=== PATIENT | female | born 1990 | race Caucasian/White ===

== ENCOUNTER 2017-01-03 11:35 | Inpatient (IN) | payer OTHER ==
[2017-01-03 12:01] VITALS: BMI 25.8
--- NOTE | 2017-01-03 12:34 | HP ---
CIWA Score - CIWA Score Nausea/Vomitin Muscle Tremors: 3 Anxiety: 3 Agitation: 3 Paroxysmal Sweats: 2 Orientation: 0-Oriented Tacttile Disturbances: 2-Mild Itch/Numbness/Burn Auditory Disturbances: 2-Mild Harshness/Frighten Visual Disturbances: 1-Very Mild Sensitivity Headache: 2-Mild CIWA-Ar Total Score: 21 Admission ROS BHS - HPI Chief Complaint: i am here for detox from xanax and cocaine Allergies/Adverse Reactions: Allergies Allergy/AdvReac Type Severity Reaction Status Date / Time No Known Allergies Allergy Verified 01/03/17 12:13 History of Present Illness: this 26 years old female with xanax and cociane dependence,seeking detox,last treatment [facility] 05/05 mmtp 60 mgs/day,last medicated today abscess of right elbow s/p incision and drainage today no significant period of sobriety - Ebola screening Have you traveled outside of the country in the last 21 days: No Have you had contact with anyone from an Ebola affected area: No Have you been sick,other than usual withdrawal symptoms: No Do you have a fever: No - Review of Systems Constitutional: Loss of Appetite, Night Sweats, Changes in sleep EENT: reports: Nose Congestion Respiratory: reports: No Symptoms reported Cardiac: reports: No Symptoms Reported GI: reports: No Symptoms Reported : reports: No Symptoms Reported Musculoskeletal: reports: Back Pain, Joint Pain, Muscle Pain Integumentary: reports: Dryness Neuro: reports: Headache, Tremors Endocrine: reports: No Symptoms Reported Hematology: reports: No Symptoms Reported Psychiatric: reports: No Sypmtoms Reported, Judgement Intact, Mood/Affect Appropiate, Orientated x3 Patient History - Patient Medical History Hx Anemia: No Hx Asthma: No Hx Chronic Obstructive Pulmonary Disease (COPD): No Hx Cancer: No Hx Cardiac Disorders: No Hx Congestive Heart Failure: No Hx Hypertension: No Hx Hypercholesterolemia: No Hx Pacemaker: No HX Cerebrovascular Accident: No Hx Seizures: No Hx Dementia: No Hx Diabetes: No Hx Gastrointestinal Disorders: No Hx Liver Disease: No Hx Genitourinary Disorders: No Hx Sexually Transmitted Disorders: No Hx Renal Disease (ESRD): No Hx Thyroid Disease: No Hx Human Immunodeficiency Virus (HIV): No (last 12/28/16 negative) Hx Hepatitis C: No Hx Depression: No Hx Suicide Attempt: No Hx Bipolar Disorder: No Hx Schizophrenia: No Other Medical History: no suicidal,no homicidal - Patient Surgical History Past Surgical History: Yes Other Surgical History: incision and drainage of abscess of right elbow - PPD History Previous Implant?: Yes Documented Results: Negative w/o proof Implanted On Prior R Admission?: Yes PPD to be Administered?: Yes - Reproductive History Patient is a Female of Child Bearing Age (11 -55 yrs old): Yes Last Menstrual Period: 12/27/16 Patient : No - Smoking Cessation Smoking history: Never smoked - Substance & Tx. History Hx Alcohol Use: No Hx Substance Use: Yes Substance Use Type: Cocaine, Tranquilizers - Substances Abused Alprazolam (Xanax) Route: Oral Frequency: Daily Amount used: 4MG Age of first use: 25 Date of Last Use: 01/02/17 Cocaine Route: Injection Frequency: Daily Amount used: 2 BAGS Age of first use: 25 Date of Last Use: 01/02/17 Family Disease History - Family Disease History Family Disease History: Other: Mother (dsa) Admission Physical Exam S - Vital Signs Vital Signs: Vital Signs - 24 hr 01/03/17 11:58 Temperature 96.5 F L Pulse Rate 64 Respiratory 20 Rate Blood Pressure 128/77 - Physical General Appearance: Yes: Moderate Distress, Tremorous, Irritable, Sweating, Anxious HEENTM: Yes: Normal ENT Inspection, [place], Pharynx Normal Respiratory: Yes: Lungs Clear, Normal Breath Sounds, No Respiratory Distress Neck: Yes: Within Normal Limits, Supple, Trachea in good position Breast: Yes: Breast Exam Deferred Cardiology: Yes: Within Normal Limits, Regular Rhythm, Regular Rate, S1, S2 Abdominal: Yes: Within Normal Limits, Normal Bowel Sounds, Non Tender, Soft Genitourinary: Yes: Within Normal Limits Back: Yes: Normal Inspection, Muscle Spasm Musculoskeletal: Yes: Back pain, Muscle Pain Extremities: Yes: Tremors, Other (s/p incision and drainage of abscess of right elbow) 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 NML intact, Fully Oriented, Alert, Motor Strength 5/5 Integumentary: Yes: Dry (s/p drainage of abscess of right elbow with dressiong) Lymphatic: Yes: Within Normal Limits - Diagnostic (1) Uncomplicated sedative, 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 (2) Cocaine dependence Current Visit: Yes Status: Chronic Qualifiers: Substance use status: uncomplicated Qualified Code(s): F14.20 - Cocaine dependence, uncomplicated; F14.20 - Cocaine dependence, uncomplicated; F14.20 - Cocaine dependence, uncomplicated (3) Methadone maintenance therapy patient Current Visit: Yes Status: Chronic (4) Abscess Current Visit: Yes Status: Acute Cleared for Admission [facility] - Detox or Rehab [facility] Level of Care: Medically Managed Detox Regimen/Protocol: Valium S Breath Alcohol Content Breath Alcohol Content: 0 Urine Pregancy Test - Result Urine Test Results: Negative- NO Line Present Urine Drug Screen - Results Drug Screen Negative: No Urine Drug Screen Results: CECELIA-Cocaine, OPI-Opiates, BZO-Benzodiazepines, MTD- Methadone
[2017-01-03] MEDS ORDERED: MAG HYDROX/AL HYDROX/SIMETH 30 ML UNIT-DOSE CUP PO PRN (12:52)
[2017-01-03] MEDS ORDERED: P-EPHED 60MG/TRIPROLIDI 2.5MG TABLET PO PRN (12:52)
[2017-01-03] MEDS ORDERED: diazePAM 5 MG TABLET PO PRN (12:52)
[2017-01-03] MEDS ORDERED: MENTHOL/PHENOL 1 EACH UD MM PRN (12:52)
[2017-01-03] MEDS ORDERED: IBUPROFEN 400 MG TABLET (FP) PO PRN (12:52)
[2017-01-03] MEDS ORDERED: guaiFENesin/D-METHORPHAN HB 10 ML UNIT-DOSE CUPS PO PRN (12:52)
[2017-01-03] MEDS ORDERED: MAGNESIUM CITRATE 300 ML BOTTLE PO PRN (12:52)
[2017-01-03] MEDS ORDERED: LOPERAMIDE HCL 2 MG CAPSULE PO PRN (12:52)
[2017-01-03] MEDS ORDERED: diazePAM 5 MG TABLET PO ONE (13:45)
[2017-01-03] MEDS: diazePAM 5 MG TABLET PO SCH ×2 (14:13→22:31)
[2017-01-03 16:52] LABS: URINE APPEARANCE CLOUDY; URINE BILIRUBIN NEGATIVE (NEGATIVE); URINE BLOOD NEGATIVE (NEGATIVE); URINE COLOR YELLOW; URINE GLUCOSE (UA) NEGATIVE (NEGATIVE); URINE KETONE NEGATIVE (NEGATIVE); URINE NITRITE NEGATIVE (NEGATIVE); URINE UROBILINOGEN NEGATIVE mg/dL (0.2-1.0)
[2017-01-03 17:07] LABS: URINE PROTEIN 1+ (NEGATIVE)
[2017-01-03 17:44] LABS: URINE HYALINE CAST 5 /lpf; URINE MUCUS MANY; URINE RBC 4 /hpf (0-3); URINE WBC 13 /hpf (3-5)
[2017-01-03] MEDS ORDERED: CLINDAMYCIN HCL 300 MG CAPSULE PO SCH (18:00)
[2017-01-03] MEDS: CLINDAMYCIN HCL 150 MG CAPSULE (FP) PO SCH (18:05)
[2017-01-03 19:58] LABS: URINE LEUK ESTERASE Negative (NEGATIVE)
[2017-01-03] MEDS: NAPROXEN 500 MG TABLET (FP) PO SCH (22:31)
[2017-01-03] MEDS: THIAMINE HCL 100 MG TABLET (FP) PO SCH (22:31)
[2017-01-04] MEDS: CLINDAMYCIN HCL 150 MG CAPSULE (FP) PO SCH ×5 (06:12→23:08)
[2017-01-04] MEDS: diazePAM 5 MG TABLET PO SCH ×3 (06:12→22:18)
[2017-01-04] MEDS ORDERED: METHADONE HCL 10 MG TABLET PO ONE (09:51)
[2017-01-04] MEDS ORDERED: METHADONE 40 MG, METHADONE 20 MG PO ONE (10:00)
[2017-01-04] MEDS ORDERED: METHADONE HCL 40 MG DISPERSABLE TABLET ONE (10:06)
[2017-01-04] MEDS ORDERED: METHADONE HCL 10 MG TABLET ONE (10:07)
[2017-01-04 10:52] LABS: ALBUMIN 3.2 g/dl (3.4-5.0); ANION GAP 7 (8-16); CALCIUM 8.5 mg/dL (8.5-10.1); CO2 27 mmol/L (21-32); CREATININE 0.8 mg/dL (0.55-1.02); GLUCOSE,RANDOM 89 mg/dL (74-106); SGOT/AST 10 U/L (15-37); SGPT/ALT 14 U/L (12-78)
[2017-01-04 10:53] LABS: MCH 26.5 pg (25.7-33.7); MCHC 33.4 g/dl (32.0-36.0); MEAN CELL VOLUME 79.6 fl (80-96); MEAN PLT VOLUME 7.9 fl (7.5-11.1); PLATELET COUNT 304 K/MM3 (134-434); RDW 14.1 % (11.6-15.6); WHITE BLOOD COUNT 4.6 K/mm3 (4.0-10.0)
[2017-01-04 10:54] LABS: ALK PHOS 71 U/L (45-117); BILIRUBIN,TOTAL 0.2 mg/dL (0.2-1.0); TOT PROT 7.4 g/dl (6.4-8.2)
[2017-01-04] MEDS: PRENATAL VITAMINS W/ FOLIC ACID TABLET (FP) PO SCH (11:06)
[2017-01-04] MEDS: NAPROXEN 500 MG TABLET (FP) PO SCH ×2 (11:06→22:18)
[2017-01-04] MEDS: LIDOCAINE 5% TOPICAL PATCH TP SCH (11:07)
--- NOTE | 2017-01-04 12:04 | PN ---
S CIWA - CIWA Score Nausea/Vomitin-No Nausea/No Vomiting Muscle Tremors: 4-Moderate,w/Arms Extend Anxiety: 3 Agitation: 4-Moderately Restless Paroxysmal Sweats: 3 Orientation: 0-Oriented Tacttile Disturbances: 0-None Auditory Disturbances: 0-None Visual Disturbances: 0-None Headache: 0-None Present CIWA-Ar Total Score: 14 BHS Progress Note (SOAP) Subjective: interrupted sleep agitation sweats pain at incision site Objective: 01/04/17 12:02 Vital Signs Temperature 96.9 F L 01/04/17 10:07 Pulse Rate 78 01/04/17 10:07 Respiratory Rate 18 01/04/17 10:07 Blood Pressure 128/62 01/04/17 10:07 O2 Sat by Pulse Oximetry (%) Laboratory Tests 01/03/17 01/04/17 01/04/17 15:40 07:00 07:00 WBC 4.6 RBC 4.07 Hgb 10.8 Hct 32.4 MCV 79.6 L MCH 26.5 MCHC 33.4 RDW 14.1 Plt Count 304 MPV 7.9 Sodium 139 Potassium 4.1 Chloride 105 Carbon Dioxide 27 Anion Gap 7 L BUN 10 Creatinine 0.8 Creat Clearance w eGFR > 60 Random Glucose 89 Calcium 8.5 Total Bilirubin 0.2 AST 10 L ALT 14 Alkaline Phosphatase 71 Total Protein 7.4 Albumin 3.2 L Urine Color Yellow Urine Appearance Cloudy Urine pH 7.0 Ur Specific [place] 1.025 Urine Protein 1+ H Urine Glucose (UA) Negative Urine Ketones Negative Urine Blood Negative Urine Nitrite Negative Urine Bilirubin Negative Urine Urobilinogen Negative Ur Leukocyte Esterase Negative Urine RBC 4 Urine WBC 13 Ur Epithelial Cells Many Hyaline Casts 5 Urine Mucus Many RPR Titer 01/04/17 07:00 WBC RBC Hgb Hct MCV MCH MCHC RDW Plt Count MPV Sodium Potassium Chloride Carbon Dioxide Anion Gap BUN Creatinine Creat Clearance w eGFR Random Glucose Calcium Total Bilirubin AST ALT Alkaline Phosphatase Total Protein Albumin Urine Color Urine Appearance Urine pH Ur Specific [place] Urine Protein Urine Glucose (UA) Urine Ketones Urine Blood Urine Nitrite Urine Bilirubin Urine Urobilinogen Ur Leukocyte Esterase Urine RBC Urine WBC Ur Epithelial Cells Hyaline Casts Urine Mucus RPR Titer Nonreactive aaox3 ambulating no acute distress Assessment: 01/04/17 12:02 withdrawal sx Plan: continue detox increase fluids incision site packing removed, site is clean no s/s of infection, bacitracin ordered and gauze ordered for dressing change.
[2017-01-04] MEDS: ACETAMINOPHEN 325 MG TABLET (FP) PO PRN (12:50)
[2017-01-04] MEDS: BACITRACIN 0.9 GM PACKET TP SCH (12:52)
--- NOTE | 2017-01-04 13:08 | EKG ---
Test Reason : Blood Pressure : / mmHG Vent. Rate : 058 BPM Atrial Rate : 058 BPM P-R Int : 138 ms QRS Dur : 080 ms QT Int : 472 ms P-R-T Axes : 007 025 -02 degrees QTc Int : 463 ms SINUS BRADYCARDIA T WAVE ABNORMALITY, CONSIDER ANTERIOR ISCHEMIA ABNORMAL ECG NO PREVIOUS ECGS AVAILABLE Confirmed by RICHAR CANCHOLA MD ([id number]) on 01/04/2017 1:08:15 PM Referred By: Confirmed By:RICHAR CANCHOLA MD
[2017-01-04] MEDS: diphenhydrAMINE HCL 50 MG CAPSULE PO PRN (22:17)
[2017-01-04] MEDS: LIDOCAINE PATCH REMOVAL MC SCH (22:18)
[2017-01-04] MEDS: THIAMINE HCL 100 MG TABLET (FP) PO SCH (22:19)
[2017-01-05] MEDS ORDERED: METHADONE HCL 10 MG TABLET ONE (05:08)
[2017-01-05] MEDS ORDERED: METHADONE HCL 40 MG DISPERSABLE TABLET ONE (05:08)
[2017-01-05] MEDS ORDERED: METHADONE HCL 40 MG DISPERSABLE TABLET PO SCH (06:00)
[2017-01-05] MEDS: CLINDAMYCIN HCL 150 MG CAPSULE (FP) PO SCH ×4 (06:19→23:03)
[2017-01-05] MEDS: METHADONE 40 MG, METHADONE 20 MG PO SCH (06:20)
[2017-01-05] MEDS: PRENATAL VITAMINS W/ FOLIC ACID TABLET (FP) PO SCH (10:37)
[2017-01-05] MEDS: BACITRACIN 0.9 GM PACKET TP SCH (10:37)
[2017-01-05] MEDS: diazePAM 5 MG TABLET PO SCH ×2 (10:37→23:03)
[2017-01-05] MEDS: NAPROXEN 500 MG TABLET (FP) PO SCH ×2 (10:38→23:03)
[2017-01-05] MEDS: LIDOCAINE 5% TOPICAL PATCH TP SCH (10:38)
[2017-01-05] MEDS: ACETAMINOPHEN 325 MG TABLET (FP) PO PRN (10:40)
[2017-01-05] MEDS: MAGNESIUM HYDROX 2400MG/30ML ORAL SUSPENSION 30 ML CUP PO PRN (10:42)
--- NOTE | 2017-01-05 12:45 | PN ---
S CIWA - CIWA Score Nausea/Vomitin-Mild Nausea/No Vomiting Muscle Tremors: 4-Moderate,w/Arms Extend Anxiety: 3 Agitation: 4-Moderately Restless Paroxysmal Sweats: 3 Orientation: 0-Oriented Tacttile Disturbances: 0-None Auditory Disturbances: 0-None Visual Disturbances: 0-None Headache: 1-Very Mild CIWA-Ar Total Score: 16 BHS Progress Note (SOAP) Subjective: headache agitation anxiety cold sweats irritable nausea Objective: 01/05/17 12:44 Vital Signs Temperature 97.7 F 01/05/17 10:00 Pulse Rate 71 01/05/17 10:00 Respiratory Rate 18 01/05/17 10:00 Blood Pressure 120/60 01/05/17 10:00 O2 Sat by Pulse Oximetry (%) Laboratory Tests 01/03/17 01/04/17 01/04/17 15:40 07:00 07:00 WBC 4.6 RBC 4.07 Hgb 10.8 Hct 32.4 MCV 79.6 L MCH 26.5 MCHC 33.4 RDW 14.1 Plt Count 304 MPV 7.9 Sodium 139 Potassium 4.1 Chloride 105 Carbon Dioxide 27 Anion Gap 7 L BUN 10 Creatinine 0.8 Creat Clearance w eGFR > 60 Random Glucose 89 Calcium 8.5 Total Bilirubin 0.2 AST 10 L ALT 14 Alkaline Phosphatase 71 Total Protein 7.4 Albumin 3.2 L Urine Color Yellow Urine Appearance Cloudy Urine pH 7.0 Ur Specific [place] 1.025 Urine Protein 1+ H Urine Glucose (UA) Negative Urine Ketones Negative Urine Blood Negative Urine Nitrite Negative Urine Bilirubin Negative Urine Urobilinogen Negative Ur Leukocyte Esterase Negative Urine RBC 4 Urine WBC 13 Ur Epithelial Cells Many Hyaline Casts 5 Urine Mucus Many RPR Titer 01/04/17 07:00 WBC RBC Hgb Hct MCV MCH MCHC RDW Plt Count MPV Sodium Potassium Chloride Carbon Dioxide Anion Gap BUN Creatinine Creat Clearance w eGFR Random Glucose Calcium Total Bilirubin AST ALT Alkaline Phosphatase Total Protein Albumin Urine Color Urine Appearance Urine pH Ur Specific [place] Urine Protein Urine Glucose (UA) Urine Ketones Urine Blood Urine Nitrite Urine Bilirubin Urine Urobilinogen Ur Leukocyte Esterase Urine RBC Urine WBC Ur Epithelial Cells Hyaline Casts Urine Mucus RPR Titer Nonreactive aaox3 ambulating no acute distress Assessment: 01/05/17 12:44 withdrawal sx wound to arm is clean no s/s infection Plan: continue detox increase fluids zofran prn motrin 600mg prn
[2017-01-05] MEDS: LIDOCAINE PATCH REMOVAL MC SCH (23:02)
[2017-01-05] MEDS: THIAMINE HCL 100 MG TABLET (FP) PO SCH (23:03)
[2017-01-05] MEDS: diphenhydrAMINE HCL 50 MG CAPSULE PO PRN (23:04)
[2017-01-06] MEDS ORDERED: METHADONE HCL 10 MG TABLET ONE (04:19)
[2017-01-06] MEDS ORDERED: METHADONE HCL 40 MG DISPERSABLE TABLET ONE (04:19)
[2017-01-06] MEDS: METHADONE 40 MG, METHADONE 20 MG PO SCH (06:19)
[2017-01-06] MEDS: CLINDAMYCIN HCL 150 MG CAPSULE (FP) PO SCH ×4 (06:19→23:41)
[2017-01-06] MEDS: ACETAMINOPHEN 325 MG TABLET (FP) PO PRN (06:20)
[2017-01-06] MEDS: BACITRACIN 0.9 GM PACKET TP SCH (11:14)
[2017-01-06] MEDS: NAPROXEN 500 MG TABLET (FP) PO SCH ×2 (11:14→22:50)
[2017-01-06] MEDS: diazePAM 5 MG TABLET PO SCH ×2 (11:14→22:50)
[2017-01-06] MEDS: ONDANSETRON *ODT* 4 MG TABLET SL PRN (11:16)
[2017-01-06] MEDS: MAGNESIUM HYDROX 2400MG/30ML ORAL SUSPENSION 30 ML CUP PO PRN (11:16)
[2017-01-06] MEDS: PRENATAL VITAMINS W/ FOLIC ACID TABLET (FP) PO SCH (11:17)
[2017-01-06] MEDS: LIDOCAINE 5% TOPICAL PATCH TP SCH (11:17)
--- NOTE | 2017-01-06 12:57 | PN ---
BHS Progress Note (SOAP) Subjective: poor sleep, anxious, shaky Objective: 01/06/17 12:57 Laboratory Tests 01/03/17 01/04/17 01/04/17 15:40 07:00 07:00 WBC 4.6 RBC 4.07 Hgb 10.8 Hct 32.4 MCV 79.6 L MCH 26.5 MCHC 33.4 RDW 14.1 Plt Count 304 MPV 7.9 Sodium 139 Potassium 4.1 Chloride 105 Carbon Dioxide 27 Anion Gap 7 L BUN 10 Creatinine 0.8 Creat Clearance w eGFR > 60 Random Glucose 89 Calcium 8.5 Total Bilirubin 0.2 AST 10 L ALT 14 Alkaline Phosphatase 71 Total Protein 7.4 Albumin 3.2 L Urine Color Yellow Urine Appearance Cloudy Urine pH 7.0 Ur Specific [place] 1.025 Urine Protein 1+ H Urine Glucose (UA) Negative Urine Ketones Negative Urine Blood Negative Urine Nitrite Negative Urine Bilirubin Negative Urine Urobilinogen Negative Ur Leukocyte Esterase Negative Urine RBC 4 Urine WBC 13 Ur Epithelial Cells Many Hyaline Casts 5 Urine Mucus Many RPR Titer 01/04/17 07:00 WBC RBC Hgb Hct MCV MCH MCHC RDW Plt Count MPV Sodium Potassium Chloride Carbon Dioxide Anion Gap BUN Creatinine Creat Clearance w eGFR Random Glucose Calcium Total Bilirubin AST ALT Alkaline Phosphatase Total Protein Albumin Urine Color Urine Appearance Urine pH Ur Specific [place] Urine Protein Urine Glucose (UA) Urine Ketones Urine Blood Urine Nitrite Urine Bilirubin Urine Urobilinogen Ur Leukocyte Esterase Urine RBC Urine WBC Ur Epithelial Cells Hyaline Casts Urine Mucus RPR Titer Nonreactive Vital Signs - 24 hr 01/05/17 01/05/17 01/05/17 15:09 18:31 23:55 Temperature 97.6 F 98.1 F 97.1 F L Pulse Rate 97 H 57 L 58 L Respiratory 18 16 16 Rate Blood Pressure 118/71 93/59 101/70 01/06/17 01/06/17 01/06/17 00:30 03:30 06:53 Temperature 98.1 F Pulse Rate 68 Respiratory 18 18 18 Rate Blood Pressure 104/67 01/06/17 11:29 Temperature 97.1 F L Pulse Rate 58 L Respiratory 16 Rate Blood Pressure 108/66 Assessment: 01/06/17 12:57 withdrawal Plan: cont detox protocol
[2017-01-06] MEDS: hydrOXYzine PAMOATE 50 MG CAPSULE (FP) PO PRN (17:28)
[2017-01-06] MEDS: THIAMINE HCL 100 MG TABLET (FP) PO SCH (22:49)
[2017-01-06] MEDS: LIDOCAINE PATCH REMOVAL MC SCH (22:50)
[2017-01-06] MEDS: diphenhydrAMINE HCL 50 MG CAPSULE PO PRN (22:50)
[2017-01-07] MEDS ORDERED: METHADONE HCL 10 MG TABLET ONE (04:26)
[2017-01-07] MEDS ORDERED: METHADONE HCL 40 MG DISPERSABLE TABLET ONE (04:26)
[2017-01-07] MEDS: CLINDAMYCIN HCL 150 MG CAPSULE (FP) PO SCH ×4 (05:57→23:07)
[2017-01-07] MEDS: METHADONE 40 MG, METHADONE 20 MG PO SCH (05:58)
[2017-01-07] MEDS ORDERED: diazePAM 5 MG TABLET PO SCH (10:00)
[2017-01-07] MEDS: NAPROXEN 500 MG TABLET (FP) PO SCH ×2 (10:25→22:27)
[2017-01-07] MEDS: ONDANSETRON *ODT* 4 MG TABLET SL PRN (10:25)
[2017-01-07] MEDS: PRENATAL VITAMINS W/ FOLIC ACID TABLET (FP) PO SCH (10:25)
--- NOTE | 2017-01-07 11:17 | PN ---
BHS Progress Note (SOAP) Subjective: Sweating,interrupted sleep,restless Objective: 01/07/17 11:14 Vital Signs - 8 hr 01/07/17 01/07/17 06:00 10:00 Temperature 97.7 F 97.1 F L Pulse Rate 69 74 Respiratory 18 18 Rate Blood Pressure 101/67 104/74 Laboratory Last Values WBC 4.6 K/mm3 (4.0-10.0) 01/04/17 07:00 RBC 4.07 M/mm3 (3.60-5.2) 01/04/17 07:00 Hgb 10.8 GM/dL (10.7-15.3) 01/04/17 07:00 Hct 32.4 % (32.4-45.2) 01/04/17 07:00 MCV 79.6 fl (80-96) L 01/04/17 07:00 MCH 26.5 pg (25.7-33.7) 01/04/17 07:00 MCHC 33.4 g/dl (32.0-36.0) 01/04/17 07:00 RDW 14.1 % (11.6-15.6) 01/04/17 07:00 Plt Count 304 K/MM3 (134-434) 01/04/17 07:00 MPV 7.9 fl (7.5-11.1) 01/04/17 07:00 Sodium 139 mmol/L (136-145) 01/04/17 07:00 Potassium 4.1 mmol/L (3.5-5.1) 01/04/17 07:00 Chloride 105 mmol/L (98-107) 01/04/17 07:00 Carbon Dioxide 27 mmol/L (21-32) 01/04/17 07:00 Anion Gap 7 (8-16) L 01/04/17 07:00 BUN 10 mg/dL (7-18) 01/04/17 07:00 Creatinine 0.8 mg/dL (0.55-1.02) 01/04/17 07:00 Creat Clearance w eGFR > 60 (>60) 01/04/17 07:00 Random Glucose 89 mg/dL (74-106) 01/04/17 07:00 Calcium 8.5 mg/dL (8.5-10.1) 01/04/17 07:00 Total Bilirubin 0.2 mg/dL (0.2-1.0) 01/04/17 07:00 AST 10 U/L (15-37) L 01/04/17 07:00 ALT 14 U/L (12-78) 01/04/17 07:00 Alkaline Phosphatase 71 U/L (45-117) 01/04/17 07:00 Total Protein 7.4 g/dl (6.4-8.2) 01/04/17 07:00 Albumin 3.2 g/dl (3.4-5.0) L 01/04/17 07:00 Urine Color Yellow 01/03/17 15:40 Urine Appearance Cloudy 01/03/17 15:40 Urine pH 7.0 (5.0-8.0) 01/03/17 15:40 Ur Specific [place] 1.025 (1.005-1.025) 01/03/17 15:40 Urine Protein 1+ (NEGATIVE) H 01/03/17 15:40 Urine Glucose (UA) Negative (NEGATIVE) 01/03/17 15:40 Urine Ketones Negative (NEGATIVE) 01/03/17 15:40 Urine Blood Negative (NEGATIVE) 01/03/17 15:40 Urine Nitrite Negative (NEGATIVE) 01/03/17 15:40 Urine Bilirubin Negative (NEGATIVE) 01/03/17 15:40 Urine Urobilinogen Negative mg/dL (0.2-1.0) 01/03/17 15:40 Ur Leukocyte Esterase Negative (NEGATIVE) 01/03/17 15:40 Urine RBC 4 /hpf (0-3) 01/03/17 15:40 Urine WBC 13 /hpf (3-5) 01/03/17 15:40 Ur Epithelial Cells Many /hpf (FEW) 01/03/17 15:40 Hyaline Casts 5 /lpf 01/03/17 15:40 Urine Mucus Many 01/03/17 15:40 RPR Titer Nonreactive (NONREACTIVE) 01/04/17 07:00 labs noted Assessment: 01/07/17 11:16 Withdrawal sx. Plan: continue detox
[2017-01-07] MEDS: LIDOCAINE 5% TOPICAL PATCH TP SCH (12:03)
[2017-01-07] MEDS: BACITRACIN 0.9 GM PACKET TP SCH (12:04)
[2017-01-07] MEDS: hydrOXYzine PAMOATE 50 MG CAPSULE (FP) PO PRN (17:23)
[2017-01-07] MEDS: THIAMINE HCL 100 MG TABLET (FP) PO SCH (22:27)
[2017-01-07] MEDS: diphenhydrAMINE HCL 50 MG CAPSULE PO PRN (22:27)
[2017-01-07] MEDS: LIDOCAINE PATCH REMOVAL MC SCH (22:56)
[2017-01-08] MEDS ORDERED: METHADONE HCL 40 MG DISPERSABLE TABLET ONE (04:31)
[2017-01-08] MEDS ORDERED: METHADONE HCL 10 MG TABLET ONE (04:32)
[2017-01-08] MEDS: CLINDAMYCIN HCL 150 MG CAPSULE (FP) PO SCH ×3 (05:30→17:45)
[2017-01-08] MEDS: METHADONE 40 MG, METHADONE 20 MG PO SCH (05:31)
[2017-01-08] MEDS: ONDANSETRON *ODT* 4 MG TABLET SL PRN (05:31)
--- NOTE | 2017-01-08 08:57 | DS ---
[facility] Detox Discharge Summary Admission Date: 01/03/17 Discharge Date: 01/08/17 - History Present History: Cocaine Dependence, Sedative Dependence, MMTP - Physical Exam Results Vital Signs: Vital Signs Temperature 97.7 F 01/08/17 06:33 Pulse Rate 68 01/08/17 06:33 Respiratory Rate 18 01/08/17 06:33 Blood Pressure 111/64 01/08/17 06:33 O2 Sat by Pulse Oximetry (%) - Treatment Hospital Course: Detox Protocol Followed, Detoxed Safely, Responded well, Discharged Condition Good, Rehab Referral Accepted - Medication Discharge Medications: Ambulatory Orders Lidocaine 5% Patch [Lidoderm Patch -] 1 patch TP DAILY 01/03/17 Naproxen [Naprosyn -] 500 mg PO BID 01/03/17 Clindamycin [Cleocin -] 300 mg PO Q6HPO #16 tab 01/08/17 - Diagnosis (1) Abscess Current Visit: Yes Status: Acute (2) Cocaine dependence Current Visit: Yes Status: Chronic Qualifiers: Substance use status: uncomplicated Qualified Code(s): F14.20 - Cocaine dependence, uncomplicated; F14.20 - Cocaine dependence, uncomplicated; F14.20 - Cocaine dependence, uncomplicated (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
[2017-01-08] MEDS: NAPROXEN 500 MG TABLET (FP) PO SCH ×2 (10:19→22:27)
[2017-01-08] MEDS: PRENATAL VITAMINS W/ FOLIC ACID TABLET (FP) PO SCH (10:19)
[2017-01-08] MEDS: LIDOCAINE 5% TOPICAL PATCH TP SCH (10:21)
[2017-01-08] MEDS: BACITRACIN 0.9 GM PACKET TP SCH (10:21)
--- NOTE | 2017-01-08 11:58 | PN ---
S Progress Note Note: pt will stay one more day pt is waiting for rehab bed in the morning.
[2017-01-08] MEDS: diphenhydrAMINE HCL 50 MG CAPSULE PO PRN (22:27)
[2017-01-08] MEDS: THIAMINE HCL 100 MG TABLET (FP) PO SCH (22:27)
[2017-01-08] MEDS: LIDOCAINE PATCH REMOVAL MC SCH (22:43)
[2017-01-09] MEDS: CLINDAMYCIN HCL 150 MG CAPSULE (FP) PO SCH ×2 (02:01→05:54)
[2017-01-09] MEDS ORDERED: METHADONE HCL 10 MG TABLET ONE (04:21)
[2017-01-09] MEDS ORDERED: METHADONE HCL 40 MG DISPERSABLE TABLET ONE (04:21)
[2017-01-09] MEDS: METHADONE 40 MG, METHADONE 20 MG PO SCH (05:53)
--- NOTE | 2017-01-09 08:49 | DS ---
[facility] Detox Discharge Summary Admission Date: 01/03/17 Discharge Date: 01/09/17 - History Present History: Cocaine Dependence, Sedative Dependence, MMTP - Physical Exam Results Vital Signs: Vital Signs Temperature 96.8 F L 01/09/17 06:44 Pulse Rate 69 01/09/17 06:44 Respiratory Rate 18 01/09/17 06:44 Blood Pressure 101/65 01/09/17 06:44 O2 Sat by Pulse Oximetry (%) - Treatment Hospital Course: Detox Protocol Followed, Detoxed Safely, Responded well, Discharged Condition Good, Rehab Referral Accepted - Medication Discharge Medications: Ambulatory Orders Lidocaine 5% Patch [Lidoderm Patch -] 1 patch TP DAILY 01/03/17 Naproxen [Naprosyn -] 500 mg PO BID 01/03/17 Clindamycin [Cleocin -] 300 mg PO Q6HPO #16 tab 01/08/17 - Diagnosis (1) Abscess Current Visit: Yes Status: Resolved (2) Cocaine dependence Current Visit: Yes Status: Chronic Qualifiers: Substance use status: uncomplicated Qualified Code(s): F14.20 - Cocaine dependence, uncomplicated; F14.20 - Cocaine dependence, uncomplicated; F14.20 - Cocaine dependence, uncomplicated (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 (rehab [facility])
[2017-01-09 11:01] VITALS: BP 132/75; PULSE 67; TEMP 97.9
[2017-01-09] MEDS: LIDOCAINE 5% TOPICAL PATCH TP SCH (11:36)
[2017-01-09] MEDS: BACITRACIN 0.9 GM PACKET TP SCH (11:36)
[2017-01-09] MEDS: PRENATAL VITAMINS W/ FOLIC ACID TABLET (FP) PO SCH (11:37)
[2017-01-09] MEDS: NAPROXEN 500 MG TABLET (FP) PO SCH (11:37)
== END 2017-01-09 10:40 | disposition home or self-care (01) | DRG 773 ==
LOC: YASAS 11:35 → Y6N 12:58
PROVIDERS: ADMIT Internal Medicine; ATTEND Internal Medicine
PROC: HZ2ZZZZ Detoxification Services for Substance Abuse Treatment (ICD-10-PCS; principal; 2017-01-03)
DX: F13.230 Sedative, hypnotic or anxiolytic dependence with withdrawal, uncomplicated (principal); F11.20 Opioid dependence, uncomplicated; F14.20 Cocaine dependence, uncomplicated; L02.413 Cutaneous abscess of right upper limb
CPT/HCPCS: 36415; 80053; 81003; 81015; 85027; 86593; 93005; 93010